=== PATIENT | female | born 1960 | race African-American/Black ===

== ENCOUNTER 2022-01-10 12:57 | Emergency (ER) | payer SELFPAY ==
[~2022-01-10] VITALS: Ht 157.5 cm; Wt 109.0 kg
[~2022-01-10 12:57] MED LIST: HYDR12.575 PO; METO-239 PO
--- NOTE | 2022-01-10 13:57 | PHYS DOC ---
Past Medical History Past Medical History: Hypertension, Other Additional Past Medical Histor: fibroids Past Surgical History: , Other Additional Past Surgical Histo: D&C Alcohol Use: Occasionally Drug Use: None General Adult EDM: Chief Complaint: ABDOMINAL PAIN HPI: HPI: Patient is a 61-year-old female that presents today with chills, abdominal pain, and nausea. Patient states her symptoms started about 945 this morning she said she felt that she was shaking uncontrollably, she then developed right lower quadrant abdominal pain and nausea she is, she did vomit, she thought the nausea was due to her not eating so she did eat a little something but that did not help with the nausea. Patient denies chest pain, shortness of breath, or fever, painful urination or frequency in urination. Patient states the only abdominal surgery she has had is a approximately 19 years ago, she did states that she had a intestinal issues after the surgery and they had to "sew up her intestines". Review of Systems: Review of Systems: Constitutional: chills. [] Eyes: Denies change in visual acuity. [] HENT: Denies nasal congestion or sore throat. [] Respiratory: Denies cough or shortness of breath. [] Cardiovascular: Denies chest pain or edema. [] GI: Abdominal pain and nausea denies vomiting, bloody stools or diarrhea. [] : Denies dysuria. [] Musculoskeletal: Denies back pain or joint pain. [] Integument: Denies rash. [] Neurologic: Denies headache, focal weakness or sensory changes. [] Endocrine: Denies polyuria or polydipsia. [] Lymphatic: Denies swollen glands. [] Psychiatric: Denies depression or anxiety. [] Heart Score: C/O Chest Pain: No Risk Factors: Risk Factors: DM, Current or recent (<one month) smoker, HTN, HLP, family history of CAD, obesity. Risk Scores: Score 0 - 3: 2.5% MACE over next 6 weeks - Discharge Home Score 4 - 6: 20.3% MACE over next 6 weeks - Admit for Clinical Observation Score 7 - 10: 72.7% MACE over next 6 weeks - Early Invasive Strategies Allergies: Allergies: Allergies Coded Allergies Type Severity Reaction Last Updated Verified No Known Drug Allergies 10/18/13 No Physical Exam: PE: Constitutional: Well developed, well nourished, no acute distress, non-toxic appearance. [] HENT: Normocephalic, atraumatic, bilateral external ears normal, oropharynx moist, no oral exudates, nose normal. [] Eyes: PERRLA, EOMI, conjunctiva normal, no discharge. [] Neck: Normal range of motion, no tenderness, supple, no stridor. [] Cardiovascular:Heart rate regular rhythm, no murmur [] Lungs & Thorax: Bilateral breath sounds clear to auscultation [] Abdomen: Bowel sounds hypoactive, abdomen soft with slight tenderness located in the right lower quadrant, no pulsatile masses no masses noted well-healed section scar in the lower abdomen over the symphysis pubis. Skin: Warm, dry, no erythema, no rash. [] Back: No tenderness, no CVA tenderness. [] Extremities: No tenderness, no cyanosis, no clubbing, ROM intact, no edema. [] Neurologic: Alert and oriented X 3, normal motor function, normal sensory function, no focal deficits noted. [] Psychologic: Affect normal, judgement normal, mood normal. [] Current Patient Data: Labs: Laboratory Tests Test 01/10/22 13:25 01/10/22 14:22 01/10/22 16:09 White Blood Count 9.4 x10^3/uL Red Blood Count 3.99 x10^6/uL Hemoglobin 11.4 g/dL Hematocrit 34.9 % Mean Corpuscular Volume 87 fL Mean Corpuscular Hemoglobin 29 pg Mean Corpuscular Hemoglobin Concent 33 g/dL Red Cell Distribution Width 14.8 % Platelet Count 256 x10^3/uL Neutrophils (%) (Auto) 88 % Lymphocytes (%) (Auto) 7 % Monocytes (%) (Auto) 5 % Eosinophils (%) (Auto) 0 % Basophils (%) (Auto) 0 % Neutrophils # (Auto) 8.2 x10^3/uL Lymphocytes # (Auto) 0.6 x10^3/uL Monocytes # (Auto) 0.5 x10^3/uL Eosinophils # (Auto) 0.0 x10^3/uL Basophils # (Auto) 0.0 x10^3/uL Sodium Level 139 mmol/L Potassium Level 3.3 mmol/L Chloride Level 101 mmol/L Carbon Dioxide Level 29 mmol/L Anion Gap 9 Blood Urea Nitrogen 14 mg/dL Creatinine 0.9 mg/dL Estimated GFR (Cockcroft-Gault) 77.0 BUN/Creatinine Ratio 16 Glucose Level 94 mg/dL Calcium Level 9.5 mg/dL Total Bilirubin 0.8 mg/dL Aspartate Amino Transf (AST/SGOT) 15 U/L Alanine Aminotransferase (ALT/SGPT) 17 U/L Alkaline Phosphatase 46 U/L Total Protein 8.7 g/dL Albumin 3.7 g/dL Albumin/Globulin Ratio 0.7 Lipase 38 U/L Influenza Type A Antigen Negative Influenza Type B Antigen Negative SARS-CoV-2 Antigen (Rapid) Negative Urine Collection Type Unknown Urine Color (Auto) Light yellow Urine Turbidity Clear Urine pH (Auto) 6.0 Urine Specific Kila >1.050 Urine Protein (Auto) Negative mg/dL Urine Glucose (Auto)(UA) Negative mg/dL Urine Ketones (Auto) Trace mg/dL Urine Blood (Auto) Negative Urine Nitrite Negative Urine Bilirubin (Auto) Negative Urine Urobilinogen (Auto) Normal mg/dL Urine Leukocyte Esterase (Auto) Negative Urine RBC 1-2 /HPF Urine WBC 1-4 /HPF Urine Squamous Epithelial Cells Mod /LPF Urine Bacteria Few /HPF Current Medications Medications (Trade) Dose Ordered Sig/Epi Route PRN Reason Start Time Stop Time Status Last Admin Dose Admin Sodium Chloride 1,000 ml @ 999 mls/hr 1X ONCE IV 01/10/22 14:00 01/10/22 15:00 DC 01/10/22 14:00 Ondansetron HCl (Zofran) 4 mg 1X ONCE IVP 01/10/22 14:00 01/10/22 14:01 DC 01/10/22 14:31 Iohexol (Omnipaque 300 Mg/ml) 75 ml 1X ONCE IV 01/10/22 14:45 01/10/22 14:46 DC 01/10/22 14:50 Info (CONTRAST GIVEN -- Rx MONITORING) 1 each PRN DAILY PRN MC SEE COMMENTS 01/10/22 14:45 01/12/22 14:44 Vital Signs: Vital Signs Date Time Temp Pulse Resp B/P (MAP) Pulse Ox O2 Delivery O2 Flow Rate FiO2 01/10/22 17:17 78 119/55 (76) 100 Room Air 01/10/22 16:17 78 117/56 (76) 98 Room Air 01/10/22 15:17 78 149/68 (95) 98 Room Air 01/10/22 13:08 100.4 84 18 153/76 (101) 100 Room Air 100.4 Vital Signs Date Time Temp Pulse Resp B/P (MAP) Pulse Ox O2 Delivery O2 Flow Rate FiO2 01/10/22 13:08 100.4 84 18 153/76 (101) 100 Room Air 100.4 EKG: EKG: [] Radiology/Procedures: Radiology/Procedures: REASON: abdominal pain RLQ PROCEDURE: CT ABD PELV W/ IV CONTRST ONLY EXAM: CT Abdomen and Pelvis with IV contrast CLINICAL HISTORY: Reason: abdominal pain RLQ / Spl. Instructions: OMNI 300 INJ. 75 MLS / History: . COMPARISON: none TECHNIQUE: Helical CT of the abdomen and pelvis was performed following the administration of intravenous contrast. Axial, coronal and sagittal reformatted images were generated. PQRS compliance statement - One or more of the following individualized dose reduction techniques were utilized for this study: 1. Automated exposure control 2. Adjustment of the mA and/or kV according to patient size 3. Use of iterative reconstruction technique FINDINGS: Lower Chest: Visualized lung bases are clear. Heart size is normal. Abdomen and Pelvis: Liver is normal in size and attenuation with no focal hepatic lesions. Gallbladder is mildly decompressed with no definite focal abnormality. No biliary ductal dilation. The spleen, adrenals, and pancreas are unremarkable. 4.1 cm cyst in the right inferior pole attenuation measuring that of simple fluid. The renal parenchyma is otherwise unremarkable. No nephroureteral lithiasis or hydroureteronephrosis. Small hiatal hernia. Stomach is decompressed accentuating the gastric wall thickness. No evidence of bowel obstruction or focal inflammation. A few scattered colonic diverticulosis without diverticulitis. The appendix is not definitely visualized. No evidence of acute inflammation within the right lower quadrant. No free intra-abdominal air or free fluid. No pathologically enlarged abdominal or pelvic adenopathy. Urinary bladder is normal. Uterus is present. There is a circumscribed 2.8 cm hypoattenuating area in the left uterine fundus favoring a noncalcified intramural fibroid. No suspicious adnexal masses. Small fat-containing periumbilical hernia. Bones: No acute or suspicious osseous abnormalities. IMPRESSION: 1. Mild gastric wall thickening may be from underdistention or mild gastritis. 2. No evidence of acute process in the abdomen or pelvis to correlate with patient's symptoms. 3. Chronic/incidental findings, as detailed above. Electronically signed by: Yovani Roe DO (01/10/2022 3:36 PM) [facility] [] Course & Med Decision Making: Course & Med Decision Making Pertinent Labs and Imaging studies reviewed. (See chart for details) 1700 reviewed radiological laboratory results with patient, informed patient that it shows some gastritis on her CT scan, but her white count was negative for any increase, also her urine did show WBCs 1-4 which could be a urinary tract infection. We will send patient home with Macrobid for UTI and Zofran for the nausea, I advised patient to's start at clear liquid diet for the next 12 to 24 hours and then advance as tolerated. Gave return precautions for appendicitis to the patient. Dragon Disclaimer: Dragon Disclaimer: This electronic medical record was generated, in whole or in part, using a voice recognition dictation system. Departure Departure Impression: Primary Impression: Abdominal pain Qualified Codes: R10.31 - Right lower quadrant pain Additional Impressions: Nausea Gastritis Qualified Codes: K29.00 - Acute gastritis without bleeding UTI (urinary tract infection) Qualified Codes: N30.00 - Acute cystitis without hematuria Disposition: 01 HOME / SELF CARE / HOMELESS Condition: STABLE Referrals: NON,STAFF (PCP) Patient Instructions: Abdominal Pain, Clear Liquid Diet, Gastritis, Adult, Urinary Tract Infection Additional Instructions: Macrobid take 1 tablet twice daily for 7 full days Zofran take 1 tablet every 6-8 hours as needed for nausea, use with caution may cause constipation Clear liquid diet for the next 12 to 24 hours and then advance as tolerated Return to the emergency department for increased abdominal pain that localizes to the right lower quadrant, inability to keep any by mouth fluids down, increased diarrhea, and development of a fever Follow-up with your primary care physician or one of the listed clinics below for further management of your abdominal pain if you are still having pain in 5 to 7 days. [facility] [address] [place] [address] [facility] [address] [place] [address] [id number] [facility] [address] [place] [address] [facility] [address] [place] [address] [address] [address] [place] [address] [address] [place] [address] [email or web address] [address] [place] [address] [email or web address] [address] [place] [address] [facility] [address] [place] [address] Scripts Nitrofurantoin Monohyd/M-Cryst (MACROBID 100 MG CAPSULE) 100 Mg Capsule 1 CAP PO BID for 7 Days, #14 CAP 0 Refills Prov: [employer] 01/10/22 Ondansetron (ONDANSETRON ODT) 4 Mg Tab.rapdis 1 TAB PO PRN Q6-8HRS, #16 TAB Prov: [employer] 01/10/22 [employer] Jan 10, 2022 13:57
[2022-01-10] MEDS ORDERED: ONDANSETRON PF 4 MG/2 ML VIAL. IVP ONE (14:00)
[2022-01-10] MEDS ORDERED: IV NORMAL SALINE 1000ML BAG 1,000 ML IV ONE (14:00)
[2022-01-10 14:09] LABS: CALCIUM 9.5 mg/dL (8.5-10.1); CREATININE 0.9 mg/dL (0.6-1.0); POTASSIUM 3.3 mmol/L (3.5-5.1)
[2022-01-10 14:15] LABS: ALBUMIN 3.7 g/dL (3.4-5.0); ALBUMIN/GLOBULIN RATIO 0.7 (1.0-1.7); TOTAL BILIRUBIN 0.8 mg/dL (0.2-1.0); TOTAL PROTEIN 8.7 g/dL (6.4-8.2)
[2022-01-10 14:19] LABS: BASO % 0 % (0-3); EOS % 0 % (0-3); HEMATOCRIT 34.9 % (36.0-47.0); HEMOGLOBIN 11.4 g/dL (12.0-15.5); LYMPH # 0.6 x10^3/uL (1.0-4.8); LYMPH % 7 % (24-48); MEAN CORPUSCULAR HEMOGLOBIN 29 pg (25-35); MEAN CORPUSCULAR HGB CONC 33 g/dL (31-37); MEAN CORPUSCULAR VOLUME 87 fL (79-100); MONO # 0.5 x10^3/uL (0.0-1.1); MONO % 5 % (0-9); NEUT # 8.2 x10^3/uL (1.8-7.7); NEUT % 88 % (31-73); PLATELET COUNT 256 x10^3/uL (140-400); RED BLOOD COUNT 3.99 x10^6/uL (3.50-5.40); RED CELL DISTRIBUTION WIDTH 14.8 % (11.5-14.5); WHITE BLOOD COUNT 9.4 x10^3/uL (4.0-11.0)
[2022-01-10] MEDS ORDERED: IOHEXOL 300 MG/ML 100ML VIAL. IV ONE (14:45)
[2022-01-10] MEDS ORDERED: CONTRAST GIVEN. MC PRN (14:45)
[2022-01-10 14:59] LABS: INFLUENZA A PATIENT NEGATIVE (NEGATIVE); INFLUENZA B PATIENT NEGATIVE (NEGATIVE)
--- NOTE | 2022-01-10 15:38 | RAD ---
EXAM: CT Abdomen and Pelvis with IV contrast CLINICAL HISTORY: Reason: abdominal pain RLQ / Spl. Instructions: OMNI 300 INJ. 75 MLS / History: . COMPARISON: none TECHNIQUE: Helical CT of the abdomen and pelvis was performed following the administration of intrave nous contrast. Axial, coronal and sagittal reformatted images were generated. PQRS compliance statement - One or more of the following individualized dose reduction techniques wer e utilized for this study: 1. Automated exposure control 2. Adjustment of the mA and/or kV according to patient size 3. Use of iterative reconstruction technique FINDINGS: Lower Chest: Visualized lung bases are clear. Heart size is normal. Abdomen and Pelvis: Liver is normal in size and attenuation with no focal hepatic lesions. Gallbladder is mildly decompre ssed with no definite focal abnormality. No biliary ductal dilation. The spleen, adrenals, and pancre as are unremarkable. 4.1 cm cyst in the right inferior pole attenuation measuring that of simple flui d. The renal parenchyma is otherwise unremarkable. No nephroureteral lithiasis or hydroureteronephros is. Small hiatal hernia. Stomach is decompressed accentuating the gastric wall thickness. No evidence of bowel obstruction or focal inflammation. A few scattered colonic diverticulosis without diverticuliti s. The appendix is not definitely visualized. No evidence of acute inflammation within the right lowe r quadrant. No free intra-abdominal air or free fluid. No pathologically enlarged abdominal or pelvic adenopathy. Urinary bladder is normal. Uterus is present. There is a circumscribed 2.8 cm hypoattenuating area in the left uterine fundus favoring a noncalcified intramural fibroid. No suspicious adnexal masses. Small fat-containing periumbilical hernia. Bones: No acute or suspicious osseous abnormalities. IMPRESSION: 1. Mild gastric wall thickening may be from underdistention or mild gastritis. 2. No evidence of acute process in the abdomen or pelvis to correlate with patient's symptoms. 3. Chronic/incidental findings, as detailed above. Electronically signed by: Yovani Roe DO (01/10/2022 3:36 PM) [facility]
[2022-01-10 16:38] LABS: BACTERIA,URINE FEW /HPF (0-FEW)
[2022-01-10] MEDS ORDERED: NITR100C62 PO (17:09)
[2022-01-10] MEDS ORDERED: ONDA4TAB12 PO (17:09)
[2022-01-10 17:17] VITALS: BP 119/55
== END 2022-01-10 17:30 | disposition home or self-care (01) ==
LOC: ER 12:57
DX: N30.00 Acute cystitis without hematuria (principal); K29.00 Acute gastritis without bleeding; I10 Essential (primary) hypertension
CPT/HCPCS: 36415; 74177; 80053; 81001; 83690; 85025; 87428; 96361; 96374; 99285; J2405; J7030; Q9967